=== PATIENT | female | born 2000 | race African-American/Black ===

== ENCOUNTER 2022-09-05 13:41 | Emergency (ER) | payer OTHER ==
[~2022-09-05] VITALS: Ht 157.5 cm; Wt 95.0 kg
[2022-09-05 13:52] VITALS: O2SAT 100
[2022-09-05 15:25] LABS: CLARITY URINE CLOUDY (CLEAR); COLOR URINE DARK YELLOW (YELLOW); KETONES URINE NEGATIVE (NEGATIVE); LEUKOCYTE ESTERASE URINE NEGATIVE (NEGATIVE); NITRITE URINE POSITIVE (NEGATIVE); OCCULT BLOOD URINE NEGATIVE (NEGATIVE); PH URINE 7.5 (4.5-8.0); PROTEIN URINE NEGATIVE (NEGATIVE); SPECIFIC GRAVITY URINE 1.019 (1.005-1.030)
[2022-09-05] MEDS ORDERED: NITR-87 MT (15:46)
[2022-09-05] MEDS ORDERED: DIF15 MT (15:46)
[2022-09-05 16:08] VITALS: BP 128/76; PULSE 88; RESP 18; TEMP 98.7
== END 2022-09-05 16:10 | disposition home or self-care (01) ==
LOC: ER 13:41
DX: N39.0 Urinary tract infection, site not specified (principal)
CPT/HCPCS: 87491; 87591; 81003; 81025; 99284; Z7610